=== PATIENT | female | born 1960 | race Caucasian/White ===

== ENCOUNTER → 2016-11-11 | Outpatient (CLI) | payer OTHER | LOC: OD 17:09 | PROVIDERS: ATTEND Nurse Practitioner Acute Care | DX: R10.9 Unspecified abdominal pain (principal) | CPT/HCPCS: 87086 ==

== ENCOUNTER → 2016-12-11 | Outpatient (CLI) | payer OTHER | LOC: RAD 15:43 | PROVIDERS: ATTEND Physician Assistant | DX: R10.9 Unspecified abdominal pain (principal); R31.9 Hematuria, unspecified | CPT/HCPCS: 76770 ==

== ENCOUNTER → 2017-04-30 | Outpatient (CLI) | payer SELFPAY ==
[2017-04-30 11:05] LABS: ABSOLUTE BASOPHILS # (AUTO) 0.1 10^3/uL (0.0-0.2); ABSOLUTE EOSINOPHILS # (AUTO) 0.1 10^3/uL (0.0-0.6); ABSOLUTE LYMPHOCYTES (AUTO) 1.4 10^3/uL (0.5-4.7); ABSOLUTE MONOCYTES (AUTO) 0.5 10^3/uL (0.1-1.4); ABSOLUTE NEUT (AUTO) 2.8 10^3/uL (1.7-8.2); BASOPHILS % (AUTO) 1.4 % (0-2); EOSINOPHILS % (AUTO) 2.3 % (0-6); HEMATOCRIT 43.8 % (36.0-47.0); HEMOGLOBIN 14.1 g/dL (12.0-15.5); HGB HCT DIFFERENCE -1.5; LYMPHOCYTES % (AUTO) 28.7 % (13-45); MEAN CORPUSCULAR HEMOGLOBIN 28.8 pg (27.0-33.4); MEAN CORPUSCULAR HGB CONC 32.2 g/dL (32.0-36.0); MEAN CORPUSCULAR VOLUME 89 fl (80-97); MONOCYTES % (AUTO) 10.2 % (3-13); RED CELL DISTRIBUTION WIDTH 14.3 % (11.5-14.0); SEGMENTED NEUTROPHILS % (AUTO) 57.4 % (42-78)
[2017-04-30 11:27] LABS: ALANINE AMINOTRANSFERASE 54 U/L (9-52); ALBUMIN 4.7 g/dL (3.5-5.0); ALKALINE PHOSPHATASE 114 U/L (38-126); ANION GAP 11 (5-19); ASPARTATE AMINO TRANSFERASE 26 U/L (14-36); BILIRUBIN,DIRECT 0.3 mg/dL (0.0-0.4); BILIRUBIN,TOTAL 0.5 mg/dL (0.2-1.3); BLOOD UREA NITROGEN 11 mg/dL (7-20); CALCIUM 9.8 mg/dL (8.4-10.2); CARBON DIOXIDE 27 mmol/L (22-30); CHLORIDE 104 mmol/L (98-107); CREATININE RESULT 0.57 mg/dL (0.52-1.25); GLUCOSE 94 mg/dL (75-110); LIPASE 80.3 U/L (23-300); POTASSIUM 4.2 mmol/L (3.6-5.0); SODIUM 141.8 mmol/L (137-145); TOTAL PROTEIN 7.5 g/dL (6.3-8.2); URIC ACID 5.4 mg/dL (2.5-7.5)
[2017-04-30 11:42] LABS: ERYTHROCYTE SEDIMENTATION RATE 12 mm/hr (0-30)
--- NOTE | 2017-04-30 13:00 | RADIOLOGY REPORT (SQ) ---
EXAM DESCRIPTION: RIBS RIGHT W/PA CHEST COMPLETED DATE/TIME: 04/30/2017 11:45 am REASON FOR STUDY: RUQ PAIN (R10.11) M79.661 PAIN IN RIGHT LOWER LEG M79.671 PAIN IN RIGHT FOOT R10 .11 RIGHT UPPER QUADRANT PAIN COMPARISON: Retroperitoneal ultrasound 12/11/2016 TECHNIQUE: Frontal view of the chest and additional views of the right ribs acquired. NUMBER OF VIEWS: PA chest, right ribs detail films three views LIMITATIONS: None. FINDINGS: FRONTAL CXR: No pneumothorax. No pleural effusion. No atelectasis or infiltrates. Cardi ac silhouette size, kaity unremarkable. Lower cervical fusion plate. RIBS: No displaced rib fractures. No lytic or blastic bony lesions. OTHER: Rib detail films for the right 11th and 12th ribs demonstrates a 5 mm calcification projected over the right lower pole kidney at the level of the right L4 transverse process. This may represent an intrarenal nonobstructive stones. This was not definitely seen on prior retroperitoneal ultrasou nd. Prior ultrasound from 12/11/2016 demonstrates diffusely abnormal increased echogenicity of the edwin er from fatty infiltration or diffuse hepatocellular disease. IMPRESSION: NO PNEUMOTHORAX. NO DISPLACED RIB FRACTURES. Incidental finding of of probable right lower pole intrarenal nonobstructive kidney stone. Review of prior MRI 12/11/2016 demonstrated diffuse increased echogenicity of the liver which could be seen in fatty infiltration or diffuse hepatocellular disease. Consider right upper quadrant ultrasou nd for followup. COMMENT: SITE OF TRAUMA/COMPLAINT MARKED/STAMP COMPLETED: Yes TECHNICAL DOCUMENTATION: JOB ID: [id number] [employer]- All Rights Reserved
--- NOTE | 2017-04-30 13:02 | RADIOLOGY REPORT (SQ) ---
EXAM DESCRIPTION: FOOT RIGHT COMPLETE COMPLETED DATE/TIME: 04/30/2017 11:45 am REASON FOR STUDY: RIGHT FOOT PAIN (M79.671) M79.661 PAIN IN RIGHT LOWER LEG M79.671 PAIN IN RIGHT FOOT R10.11 RIGHT UPPER QUADRANT PAIN COMPARISON: None. NUMBER OF VIEWS: Three views. TECHNIQUE: AP, lateral and oblique radiographic images acquired of the right foot. LIMITATIONS: None. FINDINGS: MINERALIZATION: Normal. BONES: No acute fracture or dislocation. No worrisome bone lesions. JOINTS: No malalignment. No tarsal coalition SOFT TISSUES: Diffuse forefoot soft tissue swelling. No radiopaque foreign body or soft tissue gas. OTHER: No other significant finding. IMPRESSION: Diffuse forefoot soft tissue swelling. No underlying fracture. No radiopaque foreign b ciera or soft tissue gas. TECHNICAL DOCUMENTATION: JOB ID: [id number] [employer]- All Rights Reserved
== END ==
LOC: LAB 10:45
PROVIDERS: ATTEND Nurse Practitioner Acute Care
DX: M79.671 Pain in right foot (principal); M79.661 Pain in right lower leg; R10.11 Right upper quadrant pain
CPT/HCPCS: 36415; 80053; 83690; 84550; 85025; 85379; 85652

== ENCOUNTER → 2019-06-03 | Outpatient (CLI) | payer OTHER ==
--- NOTE | 2019-06-03 12:37 | WOMENS IMAGING REPORT ---
EXAM DESCRIPTION: BILAT SCREENING MAMMO W/CAD COMPLETED DATE/TIME: 06/03/2019 9:48 am REASON FOR STUDY: Z12.39 ENCOUNTER FOR OTHER SCREENING FOR MALIGNANT NEOPLASM OF BREAST Z12.39 ENCO UNTER FOR OTH SCREENING FOR MALIGNANT NEOPLASM OF COMPARISON: Multiple since 2013 EXAM PARAMETERS: Standard craniocaudal and mediolateral oblique views of each breast recorded using digital acquisition. Read with the assistance of CAD. .[facility] - [employer] Version 9.2 LIMITATIONS: None. FINDINGS: No suspicious masses, suspicious calcifications or architectural distortion. No areas of c oncern. IMPRESSION: Negative MAMMOGRAM. BIRADS 1 BREAST DENSITY: b. There are scattered areas of fibroglandular density. BIRAD: ASSESSMENT: 1 NEGATIVE RECOMMENDATION: ROUTINE SCREENING COMMENT: The patient has been notified of the results by letter per MQSA requirements. Additional no tification policies are in place for contacting patient with suspicious or incomplete findings. Quality ID #[id number]: The [employer] recommends an annual screening mammogram for women aged 40 years or over. This facility utilizes a reminder system to ensure that all patients receive reminder letters, and/or direct phone calls for appointments. This includes reminders for routine scr eening mammograms, diagnostic mammograms, or other Breast Imaging Interventions when appropriate. Th is patient will be placed in the appropriate reminder system. TECHNICAL DOCUMENTATION: FINDING NUMBER: (1) ASSESSMENT: (1) JOB ID: [id number] [employer]- All Rights Reserved Reading location - IP/workstation name: [email or web address]
== END ==
LOC: WI 09:37
PROVIDERS: ATTEND Nurse Practitioner Family
DX: Z12.31 Encounter for screening mammogram for malignant neoplasm of breast (principal)
CPT/HCPCS: 77067

== ENCOUNTER 2019-06-10 21:49 | Emergency (ER) | payer OTHER ==
--- NOTE | 2019-06-10 22:22 | ER Document Report ---
ED Medical Screen (RME) - General Stated Complaint: ABDOMINAL PAIN Time Seen by Provider: 06/10/19 22:16 Primary Care Provider: RUBI SAVAGE FNP-C [Primary Care Provider] - Follow up as needed Mode of Arrival: Medic Information source: Patient Notes: 59-year-old female presented to ED for right flank upper abdominal pain. She is alert oriented respirations regular and unlabored. She states she does not smoke drink or use any drugs. She states this started about 6 PM. She states she has been nauseated and vomiting since 630.. She has a small amount in the pain he has been she has had since she is been here. She states she feels a lot at home and in the ambulance. Patient is on Macrobid for UTI. Patient has a history of a kidney stone about 10 years ago I have greeted and performed a rapid initial assessment of this patient. A comprehensive ED assessment and evaluation of the patient, analysis of test results and completion of medical decision making process will be conducted by an additional ED providers. TRAVEL OUTSIDE OF THE [place] IN LAST 30 DAYS: No - Related Data Allergies/Adverse Reactions: No Known Allergies Allergy (Verified 11/15/13 11:51) Past Medical History - Social History Chew tobacco use (# tins/day): No Frequency of alcohol use: None Drug Abuse: None - Past Medical History Cardiac Medical History: Reports: Hx Hypertension Denies: Hx Coronary Artery Disease, Hx Heart Attack Pulmonary Medical History: Reports: Hx Pneumonia Denies: Hx Asthma, Hx Bronchitis, Hx COPD Neurological Medical History: Denies: Hx Cerebrovascular Accident, Hx Seizures Musculoskeltal Medical History: Denies Hx Arthritis Past Surgical History: Denies: Hx Hysterectomy - Immunizations Hx Diphtheria, Pertussis, Tetanus Vaccination: Yes Physical Exam - Vital signs Vitals: Temp Pulse Resp BP Pulse Ox 98.6 F 80 18 146/115 H 96 06/10/19 22:06 06/10/19 22:06 06/10/19 22:06 06/10/19 22:06 06/10/19 22:06 Course - Vital Signs Vital signs: Temp Pulse Resp BP Pulse Ox 98.6 F 80 18 146/115 H 96 06/10/19 22:06 06/10/19 22:06 06/10/19 22:06 06/10/19 22:06 06/10/19 22:06 Doctor's Discharge - Discharge Referrals: RUBI SAVAGE, ACCOUNTING SYSTEMS MANAGER-C [Primary Care Provider] - Follow up as needed
[2019-06-10] MEDS ORDERED: OXYCODONE-ACETAMINOPHEN 5-325 MG TABLET PO ONE (22:24)
[2019-06-10] MEDS ORDERED: KETOROLAC TROMETHAMINE 60 MG/2 ML SDV IM ONE (22:24)
[2019-06-10] MEDS ORDERED: ONDANSETRON 4 MG TAB.RAPDIS PO ONE (22:24)
--- NOTE | 2019-06-10 23:42 | RADIOLOGY REPORT (SQ) ---
CLINICAL HISTORY: Pain right upper quadrant/flank pain COMPARISON: None. TECHNIQUE: US ABDOMEN LIMITED on 06/10/2019 10:22 PM CDT FINDINGS: Liver is fatty in echogenicity. Gallbladder is normal in appearance without wall thickening, gallstones or pericholecystic fluid. There is a reported negative sonographic Blanco sign. Common bile duct measures 4 mm. Right kidney measures 11.9 cm and right kidney measures 12.2 cm. There is mild right hydronephrosis. IMPRESSION: Mild right hydronephrosis.
[2019-06-11 00:43] LABS: ABSOLUTE BASOPHILS # (AUTO) 0.1 10^3/uL (0.0-0.2); ABSOLUTE LYMPHOCYTES (AUTO) 1.6 10^3/uL (0.5-4.7); ABSOLUTE MONOCYTES (AUTO) 0.8 10^3/uL (0.1-1.4); ABSOLUTE NEUT (AUTO) 9.5 10^3/uL (1.7-8.2); BASOPHILS % (AUTO) 0.7 % (0-2); EOSINOPHILS % (AUTO) 0.1 % (0-6); HEMATOCRIT 42.3 % (36.0-47.0); HEMOGLOBIN 13.9 g/dL (12.0-15.5); LYMPHOCYTES % (AUTO) 13.3 % (13-45); MEAN CORPUSCULAR HEMOGLOBIN 28.6 pg (27.0-33.4); MEAN CORPUSCULAR HGB CONC 32.8 g/dL (32.0-36.0); MEAN CORPUSCULAR VOLUME 87 fl (80-97); MONOCYTES % (AUTO) 6.4 % (3-13); PLATELET COUNT 317 10^3/uL (150-450); RED BLOOD COUNT 4.84 10^6/uL (3.72-5.28); RED CELL DISTRIBUTION WIDTH 13.9 % (11.5-14.0); SEGMENTED NEUTROPHILS % (AUTO) 79.5 % (42-78); TOTAL CELLS COUNTED % (AUTO) 100 %; WHITE BLOOD COUNT 11.9 10^3/uL (4.0-10.5)
[2019-06-11 00:46] LABS: APPEARANCE,URINE SLIGHTLY-CLOUDY; BILIRUBIN,URINE NEGATIVE (NEGATIVE); COLOR,URINE AMBER; GLUCOSE, URINE NEGATIVE (NEGATIVE); KETONES,URINE 80 mg/dL (NEGATIVE); LEUKOCYTE ESTERASE,URINE NEGATIVE (NEGATIVE); NITRITE,URINE NEGATIVE (NEGATIVE); PROTEIN,URINE 100 mg/dL (NEGATIVE); URINE SPECIFIC GRAVITY 1.031; UROBILINOGEN,URINE NEGATIVE mg/dL (<2.0)
[2019-06-11 01:13] LABS: ALBUMIN 4.7 g/dL (3.5-5.0); ALKALINE PHOSPHATASE 95 U/L (38-126); ANION GAP 13 (5-19); ASPARTATE AMINO TRANSFERASE 25 U/L (14-36); BILIRUBIN,DIRECT 0.2 mg/dL (0.0-0.4); BILIRUBIN,TOTAL 0.5 mg/dL (0.2-1.3); BLOOD UREA NITROGEN 23 mg/dL (7-20); CALCIUM 10.1 mg/dL (8.4-10.2); CARBON DIOXIDE 26 mmol/L (22-30); CHLORIDE 102 mmol/L (98-107); GLUCOSE 129 mg/dL (75-110); POTASSIUM 4.3 mmol/L (3.6-5.0); TOTAL PROTEIN 7.7 g/dL (6.3-8.2)
[2019-06-11] MEDS ORDERED: MORPHINE SULFATE 10 MG/ML INJ IV ONE (02:56)
[2019-06-11] MEDS ORDERED: NORMAL SALINE 500 ML IV ONE (02:56)
--- NOTE | 2019-06-11 03:31 | ER Document Report ---
ED General - General Chief Complaint: Abdominal Pain Stated Complaint: ABDOMINAL PAIN Time Seen by Provider: 06/10/19 22:16 Primary Care Provider: RUBI SAVAGE FNP-C [Primary Care Provider] - Follow up as needed Mode of Arrival: Medic TRAVEL OUTSIDE OF THE [place] IN LAST 30 DAYS: No - HPI Notes: This is a 59-year-old lady who presents with a complaint of right lower quadrant abdominal pain for the past 3 days. Patient describes the pain as moderate, associated with nausea and vomiting. She denies any fever or chills. She denies any diarrhea constipation. She denies any trauma. She describes pain is constant. Pain is worse with palpation. - Related Data Allergies/Adverse Reactions: No Known Allergies Allergy (Verified 11/15/13 11:51) Past Medical History - General Information source: Patient - Social History Smoking Status: Never Smoker Chew tobacco use (# tins/day): No Frequency of alcohol use: None Drug Abuse: None Family History: Reviewed & Not Pertinent Patient has suicidal ideation: No Patient has homicidal ideation: No - Past Medical History Cardiac Medical History: Reports: Hx Hypertension Denies: Hx Coronary Artery Disease, Hx Heart Attack Pulmonary Medical History: Reports: Hx Pneumonia Denies: Hx Asthma, Hx Bronchitis, Hx COPD Neurological Medical History: Denies: Hx Cerebrovascular Accident, Hx Seizures Renal/ Medical History: Reports: Hx Kidney Stones Musculoskeletal Medical History: Denies Hx Arthritis Past Surgical History: Denies: Hx Hysterectomy - Immunizations Hx Diphtheria, Pertussis, Tetanus Vaccination: Yes Review of Systems - Review of Systems Constitutional: denies: Fever Cardiovascular: denies: Chest pain, Palpitations Gastrointestinal: Abdominal pain, Nausea, Vomiting. denies: Diarrhea, Constipation Neurological/Psychological: denies: Headaches -: Yes All other systems reviewed and negative Physical Exam - Vital signs Vitals: Temp Pulse Resp BP Pulse Ox 98.6 F 80 18 146/115 H 96 06/10/19 22:06 06/10/19 22:06 06/10/19 22:06 06/10/19 22:06 06/10/19 22:06 - General General appearance: Appears well, Alert - Respiratory Respiratory status: No respiratory distress Chest status: Nontender Breath sounds: Normal Chest palpation: Normal - Cardiovascular Rhythm: Regular Heart sounds: Normal auscultation Murmur: No - Abdominal Inspection: Normal Distension: No distension Bowel sounds: Normal Tenderness: Tender - There is right lower quadrant tenderness. No guarding or rebound. No peritoneal signs. Organomegaly: No organomegaly - Neurological Neuro grossly intact: Yes Cognition: Normal Orientation: AAOx4 Elmo Coma Scale Eye Opening: Spontaneous Omar Coma Scale Verbal: Oriented Omar Coma Scale Motor: Obeys Commands Omar Coma Scale Total: 15 Speech: Normal Motor strength normal: LUE, RUE, LLE, RLE Sensory: Normal - Psychological Associated symptoms: Normal affect, Normal mood - Skin Skin Temperature: Warm Skin Moisture: Dry Skin Color: Normal Course - Re-evaluation Re-evalutation: 06/11/19 03:31 Differential diagnosis includes acute appendicitis versus nonspecific abdominal pain versus UTI versus renal colic. Will get CT scan. Ultrasound done prior to my evaluation is unremarkable. 06/11/19 05:15 Patient reevaluated. She feels much better now after Dilaudid. Labs and imaging reviewed. She has a 9 mm stone. She will need urology follow-up. She feels comfortable going home now. Patient counseled. She is stable for discharge. - Vital Signs Vital signs: Temp Pulse Resp BP Pulse Ox 98.6 F 72 18 154/90 H 97 06/10/19 22:06 06/11/19 01:52 06/11/19 02:32 06/11/19 04:36 06/11/19 04:36 - Laboratory Result Diagrams: 06/10/19 23:50 06/10/19 23:50 Laboratory results interpreted by me: 06/10/19 06/10/19 06/11/19 23:50 23:50 00:10 WBC 11.9 H Absolute Neuts (auto) 9.5 H Seg Neutrophils % 79.5 H BUN 23 H Glucose 129 H Urine Protein 100 H Urine Ketones 80 H Urine Blood LARGE H Discharge - Discharge Clinical Impression: Ureteral colic Condition: Stable Disposition: HOME, SELF-CARE Instructions: Kidney Stone ([facility]) Additional Instructions: Return if fever, worse or concerns. Prescriptions: Tamsulosin HCl [Flomax 0.4 mg Cap.sr] 0.4 mg PO DAILY #7 cap.sr.24h Oxycodone HCl/Acetaminophen [Percocet 5-325 mg Tablet] 1 tab PO ASDIR PRN #25 tab PRN Reason: Ondansetron [Zofran Odt 4 mg Tablet] 1 - 2 tab PO Q4H PRN #15 tab.rapdis PRN Reason: For Nausea/Vomiting Referrals: RUBI SAVAGE FNP-C [Primary Care Provider] - Follow up as needed [facility] [Provider Group] - Follow up in 3-5 days (Call on Thursday for follow-up appointment. )
--- NOTE | 2019-06-11 04:05 | RADIOLOGY REPORT (SQ) ---
EXAM DESCRIPTION: CT ABDOMEN PELVIS WITH IV CONTRAST COMPLETED DATE/TME: 06/11/2019 02:55 CLINICAL HISTORY: 59 years, Female, RLQ pain COMPARISON: Ultrasound 06/10/2019 TECHNIQUE: 403 Images stored on PACS. All CT scanners at this facility use dose modulation, iterative reconstruction, and/or weight based dosing when appropriate to reduce radiation dose to as low as reasonably achievable (ALARA). [facility]: Dose Right [facility]: CareDose [facility]: Dose Right [facility]: Teradose 4D [facility]: [employer] LIMITATIONS: None. FINDINGS: Limited evaluation of the lung bases is unremarkable. Osseous structures are grossly intact. Fatty infiltrative change to the liver. Subcentimeter hypodensities throughout the liver likely reflect tiny cysts or hemangiomas. The spleen, adrenal glands, pancreas, left kidney are unremarkable. The gallbladder is present. Moderate right hydronephrosis secondary to a 9.3 mm proximal right ureteral calculus. No gross evidence for bowel obstruction. Normal appendix. No free air or free fluid IMPRESSION: Moderate right hydronephrosis secondary to a 9.3 mm proximal right ureteral calculus TECHNICAL DOCUMENTATION: Quality ID # [id number]: Final reports with documentation of one or more dose reduction techniques (e.g., Automated exposure control, adjustment of the mA and/or kV according to patient size, use of iterative reconstruction technique) copyright 2011 [employer]- All Rights Reserved
[2019-06-11] MEDS ORDERED: HYDROMORPHONE HCL INJ/PF 2 MG/ML AMPULE IV ONE (04:28)
[2019-06-11] MEDS ORDERED: ONDANSETRON HCL INJ/PF 4 MG/2 ML SDV IV ONE (04:29)
[2019-06-11 06:41] VITALS: BP 147/85
== END 2019-06-11 06:38 | disposition home or self-care (01) ==
LOC: ER 21:49
DX: N23 Unspecified renal colic (principal); R11.2 Nausea with vomiting, unspecified; I10 Essential (primary) hypertension
CPT/HCPCS: 36415; 83690; 85025; 80053; 81001; 76705; 74177; J1885; S0119; J2270; J1170; J2405; J7040